=== PATIENT | male | born 1985 | race Caucasian/White ===

== ENCOUNTER 2019-12-07 10:25 | Inpatient (IN) | payer SELFPAY ==
[~2019-12-07] VITALS: Ht 180.3 cm; Wt 86.2 kg
[2019-12-07] MEDS ORDERED: SODIUM CHLORIDE 0.9% 1,000 ML IV ONE (11:18)
[2019-12-07] MEDS ORDERED: LORAZEPAM 2MG/ML CPJ IV ONE (11:30)
[2019-12-07] MEDS ORDERED: ASPIRIN 325MG EC TABLET PO ONE (11:30)
[2019-12-07 11:38] LABS: BASOPHILS % 0.4 % (0.0-2.0); HEMOGLOBIN. 15.4 g/dL (14.0-18.0); LYMPHOCYTES % 10.2 % (20.0-50.0); MEAN CORPUSCULAR HEMOGLOBIN 29.8 pg (28.0-32.0); MEAN CORPUSCULAR VOLUME 87.1 fL (80.0-94.0); MEAN PLATELET VOLUME 9.2 fl (7.4-10.4); MONOCYTES % 6.2 % (2.0-8.0); NEUTROPHILS % 83.2 % (40.0-76.0); PLATELET 251 x1000/uL (130-400); RED BLOOD CELL COUNT 5.16 mill/uL (4.7-6.1); RED CELL DISTRIBUTION WIDTH 13.6 % (11.6-14.6)
[2019-12-07 11:47] LABS: CHLORIDE 100 mEq/L (98-107)
[2019-12-07 11:50] LABS: ETHANOL BLOOD < 10 mg/dL
[2019-12-07 13:16] LABS: *AMPHETAMINES SCREEN URINE PRESUMTIVE POSITIVE (NEGATIVE)
[2019-12-07 13:17] LABS: *BARBITURATES SCREEN URINE NEGATIVE (NEGATIVE); *BENZODIAZEPINES SCREEN URINE NEGATIVE (NEGATIVE); *COCAINE SCREEN URINE PRESUMTIVE POSITIVE (NEGATIVE); METHADONE URINE SCREEN NEGATIVE (NEGATIVE); OPIATES URINE SCREEN NEGATIVE (NEGATIVE)
[2019-12-07 13:18] LABS: CANNABINOID URINE SCREEN NEGATIVE (NEGATIVE); PHENCYCLIDINE URINE SCREEN NEGATIVE (NEGATIVE)
[2019-12-07] MEDS ORDERED: KETOROLAC 15MG/ML VIAL IV PRN (13:45)
[2019-12-07] MEDS ORDERED: NITROGLYCERIN 0.4MG TABLET SL SL PRN (13:45)
[2019-12-07] MEDS ORDERED: GUAIFENESIN 200MG/10ML SUGAR FREE UDC PO PRN (13:45)
[2019-12-07] MEDS ORDERED: CLONIDINE 0.1MG TABLET PO PRN (13:45)
[2019-12-07] MEDS ORDERED: MAGNESIUM/ALUMINUM HYDROXIDE/SIMETHICONE 30ML UDC PO PRN (13:45)
[2019-12-07] MEDS ORDERED: DOCUSATE SODIUM 100MG CAPSULE PO PRN (13:45)
[2019-12-07] MEDS ORDERED: ONDANSETRON HCL 4MG/2ML INJ IV PRN (13:45)
[2019-12-07] MEDS ORDERED: LORAZEPAM 0.5MG TABLET PO PRN (13:45)
[2019-12-07] MEDS ORDERED: ACETAMINOPHEN 325MG TABLET PO PRN (13:45)
[2019-12-07] MEDS ORDERED: IPRATROPIUM/ALBUTEROL 0.5-3(2.5)MG/3ML NEB NEB PRN (13:45)
[2019-12-07] MEDS ORDERED: NA PHOS,M-B/NA PHOS,DI-BA ENEMA 118ML PR PRN (13:45)
[2019-12-07] MEDS ORDERED: ZOLPIDEM TARTRATE 5MG TABLET PO PRN ×2 (13:45→21:00)
[2019-12-07 15:46] LABS: CREATINE KINASE 290 IU/L (39-308)
[2019-12-07 15:47] LABS: CREATINE KINASE MB FRACTION 6.7 ng/mL (0.5-3.6)
[2019-12-07 16:30] VITALS: BP 150/94
[2019-12-07] MEDS: DILTIAZEM HCL 60MG TABLET PO SCH (17:36)
[2019-12-07 20:00] VITALS: BP 123/70
[2019-12-08] VITALS: BP 121/71
[2019-12-08] MEDS: DILTIAZEM HCL 60MG TABLET PO SCH ×2 (00:42→05:21)
[2019-12-08 00:49] LABS: CREATINE KINASE 245 IU/L (39-308)
[2019-12-08 04:00] VITALS: BP 120/67
[2019-12-08 08:00] VITALS: BP 125/74
[2019-12-08] MEDS ORDERED: ASPIRIN 325MG EC TABLET PO SCH (09:00)
[2019-12-08 09:50] VITALS: BP 125/74
== END 2019-12-08 11:00 | disposition home or self-care (01) | DRG 816 ==
LOC: ER 10:50 → 5WST 13:32 → EDBEDREQTM 13:38 → ENRESERV 15:27
PROVIDERS: ADMIT Internal Medicine; ATTEND Internal Medicine
DX: T40.5X1A Poisoning by cocaine, accidental (unintentional), initial encounter (principal); E87.1 Hypo-osmolality and hyponatremia; F14.10 Cocaine abuse, uncomplicated; F17.210 Nicotine dependence, cigarettes, uncomplicated; F19.10 Other psychoactive substance abuse, uncomplicated; Z79.899 Other long term (current) drug therapy; Y92.89 Other specified places as the place of occurrence of the external cause
CPT/HCPCS: 36415; 71045; 80053; 80061; 80305; 80320; 82550; 82553; 83036; 84484; 85025; 93005; 99285; J2060; J7030; G0480